=== PATIENT | female | born 1990 | race Two or more races ===

== ENCOUNTER 2023-09-26 10:33 | Outpatient (CLI) | payer OTHER | END 2023-09-26 10:35 | disposition home or self-care (01) | LOC: PRENATAL 10:33 | PROVIDERS: ATTEND Obstetrics & Gynecology Maternal & Fetal Medicine | DX: O36.80X0 Pregnancy with inconclusive fetal viability, not applicable or unspecified (principal); Z36.82 Encounter for antenatal screening for nuchal translucency; O14.90 Unspecified pre-eclampsia, unspecified trimester; Z3A.13 13 weeks gestation of pregnancy ==

== ENCOUNTER → 2023-11-10 10:49 | Outpatient (CLI) | payer OTHER | END | disposition home or self-care (01) | LOC: PRENATAL 10:49 | PROVIDERS: ATTEND Obstetrics & Gynecology Maternal & Fetal Medicine | DX: O35.9XX0 Maternal care for (suspected) fetal abnormality and damage, unspecified, not applicable or unspecified (principal); O35.3XX0 Maternal care for (suspected) damage to fetus from viral disease in mother, not applicable or unspecified; O34.219 Maternal care for unspecified type scar from previous cesarean delivery; Z3A.19 19 weeks gestation of pregnancy ==

== ENCOUNTER 2024-03-07 09:33 | Outpatient (CLI) | payer OTHER | END 2024-03-07 09:35 | disposition home or self-care (01) | LOC: PRENATAL 09:33 | PROVIDERS: ATTEND Obstetrics & Gynecology Maternal & Fetal Medicine | DX: O26.843 Uterine size-date discrepancy, third trimester (principal); O36.8130 Decreased fetal movements, third trimester, not applicable or unspecified; O44.03 Complete placenta previa NOS or without hemorrhage, third trimester; O60.03 Preterm labor without delivery, third trimester; O99.013 Anemia complicating pregnancy, third trimester; Z3A.36 36 weeks gestation of pregnancy ==

== ENCOUNTER 2024-03-20 09:15 | Inpatient (IN) | payer OTHER ==
[~2024-03-20] VITALS: Ht 157.5 cm; Wt 3.6 kg
[2024-03-20] MEDS ORDERED: PRENATABS RX T1 EACH PO (13:49)
[2024-03-20] MEDS ORDERED: FERRETTS325 MG PO (13:50)
[2024-03-20 14:01] LABS: HEMATOCRIT 36.1 % (36.0-45.00); HEMOGLOBIN 11.5 g/dL (12.0-15.00); MEAN CELL VOLUME 76.4 fL (80.00-100.00); MEAN CORPUSCULAR HEMOGLOBIN 24.4 pg (27.00-32.0); MEAN CORPUSCULAR HGB CONC 31.9 g/dl (32.0-36.0); PLATELET COUNT 218 K/uL (150-450); RED BLOOD COUNT 4.72 M/uL (4.00-6.00); RED CELL DISTRIBUTION WIDTH 20.1 % (11.5-14.5)
[2024-03-20 14:05] LABS: URINE APPEARANCE Cloudy; URINE BILIRRUBIN Negative (NEGATIVE); URINE BLOOD Negative; URINE COLOR Yellow; URINE GLUCOSE Negative (NEGATIVE); URINE KETONE Negative (NEGATIVE); URINE LEUKOCYTE Large; URINE NITRATE Negative; URINE PROTEIN Negative (NEGATIVE); URINE UROBILINOGEN 0.2 E.U./dl
[2024-03-20 14:09] LABS: URINE BACTERIA 8560.3 uL (0.0-1933); URINE EPITHELIAL CELLS 185.5 uL (0.0-38.8); URINE RBC 28.2 uL (0.0-20.8); URINE WBC 65.7 uL (0.0-23.2)
[2024-03-20 14:49] LABS: INR < 0.93; PARTIAL THROMBOPLASTIN TIME 27.1 SECONDS (22.0-34.0); PROTHROMBIN TIME 9.9 SECONDS (9.0-11.5)
[2024-03-20 14:57] LABS: ALBUMIN 2.9 gm/dL (3.4-5.0); BILIRUBIN TOTAL 0.37 mg/dL (0.3-1.2); CALCIUM 9.6 mg/dL (8.5-10.1); CREATININE SERUM 0.47 mg/dL (0.55-1.02); GFR 154.56; GLOBULINA 4.1 G/DL (2.4-3.5); POTASSIUM 4.04 mEq/L (3.5-5.1)
[2024-03-25] MEDS ORDERED: OXYTOCIN 10 UNITS/ML VIAL ONE ×2 (14:32→19:44)
[2024-03-25] MEDS ORDERED: CEFAZOLIN SODIUM 1,000 MG VIAL ONE (14:32)
[2024-03-25] MEDS ORDERED: ERYTHROMYCIN BASE 1 GM TUBE OP ONE (14:33)
[2024-03-25] MEDS ORDERED: ONDANSETRON HCL 2 MG/ML VIAL IV PRN (17:45)
[2024-03-25] MEDS ORDERED: OXYTOCIN 1,000 ML IV SCH (17:45)
[2024-03-25] MEDS ORDERED: RINGERS SOLUTION,LACTATED 1,000 ML IV SCH (17:45)
[2024-03-25] MEDS ORDERED: SIMETHICONE 125 MG CAPSULE PO SCH (18:00)
[2024-03-25] MEDS ORDERED: MORPHINE SULFATE 4 MG/ML CARTRIDGE IV PRN (18:00)
[2024-03-25] MEDS ORDERED: KETOROLAC TROMETHAMINE 30 MG VIAL IV SCH (18:00)
[2024-03-25] MEDS ORDERED: MORPHINE SULFATE 4 MG/ML VIAL IV ONE ×2 (18:10→18:50)
[2024-03-25] MEDS ORDERED: KETOROLAC TROMETHAMINE 30 MG VIAL ONE (19:38)
[2024-03-25] MEDS ORDERED: SENNOSIDES 1 TAB TABLET PO SCH (21:00)
[2024-03-26 06:52] LABS: HEMATOCRIT 29.4 % (36.0-45.00); HEMOGLOBIN 9.6 g/dL (12.0-15.00); MEAN CELL VOLUME 75.8 fL (80.00-100.00); MEAN CORPUSCULAR HEMOGLOBIN 24.8 pg (27.00-32.0); MEAN CORPUSCULAR HGB CONC 32.8 g/dl (32.0-36.0); PLATELET COUNT 197 K/uL (150-450); RED BLOOD COUNT 3.88 M/uL (4.00-6.00); RED CELL DISTRIBUTION WIDTH 20.7 % (11.5-14.5)
[2024-03-26] MEDS ORDERED: IBUprofen 800 MG TABLET PO SCH (09:00)
[2024-03-26] MEDS ORDERED: ACETAMINOPHEN 500 MG GEL..CAP PO PRN (12:00)
[2024-03-27] MEDS ORDERED: IBU800 MG PO (09:19)
[2024-03-27] MEDS ORDERED: SURFAK240 M1 PO (09:19)
[2024-03-27] MEDS ORDERED: INTEGRA PLUS C1 EACH PO (09:19)
== END 2024-03-27 14:30 | disposition home or self-care (01) | DRG 785 ==
LOC: OB/GYN 03-25 09:15 → O/R 03-25 11:41 → OB/GYN 03-25 18:01
PROVIDERS: ADMIT Obstetrics & Gynecology; ATTEND Obstetrics & Gynecology
PROC: 0UB70ZZ Excision of Bilateral Fallopian Tubes, Open Approach (ICD-10-PCS; 2024-03-25)
PROC: 0DNW0ZZ Release Peritoneum, Open Approach (ICD-10-PCS; 2024-03-25)
PROC: 4A1HXCZ Monitoring of Products of Conception, Cardiac Rate, External Approach (ICD-10-PCS; 2024-03-25)
PROC: 10D00Z1 Extraction of Products of Conception, Low, Open Approach (ICD-10-PCS; principal; 2024-03-25 10:45)
DX: O36.63X0 Maternal care for excessive fetal growth, third trimester, not applicable or unspecified (principal); O34.211 Maternal care for low transverse scar from previous cesarean delivery; O99.892 Other specified diseases and conditions complicating childbirth; N73.6 Female pelvic peritoneal adhesions (postinfective); Z3A.39 39 weeks gestation of pregnancy; Z37.0 Single live birth; Z30.2 Encounter for sterilization